=== PATIENT | female | born 1995 | race Two or more races ===

== ENCOUNTER 2019-06-05 10:00 | Inpatient (IN) | payer OTHER ==
[~2019-06-05] VITALS: Ht 152.4 cm; Wt 68.0 kg
[2019-06-14] MEDS ORDERED: ACETAMINOPHEN325 M1 PO (10:15)
[2019-06-14] MEDS ORDERED: Dermoplast SPRAY TOP (10:15)
[2019-06-14] MEDS ORDERED: HYDROCORTISO453.6 G1 RECTAL (10:15)
== END 2019-06-14 11:21 | disposition home or self-care (01) | DRG 807 ==
LOC: OB/GYN 06-12 09:37 → LDR 06-12 09:37 → OB/GYN 06-12 14:29
PROVIDERS: ADMIT Specialist
PROC: 10E0XZZ Delivery of Products of Conception, External Approach (ICD-10-PCS; principal; 2019-06-12)
PROC: 0UQGXZZ Repair Vagina, External Approach (ICD-10-PCS; 2019-06-12)
PROC: 3E033VJ Introduction of Other Hormone into Peripheral Vein, Percutaneous Approach (ICD-10-PCS; 2019-06-12)
PROC: 10907ZC Drainage of Amniotic Fluid, Therapeutic from Products of Conception, Via Natural or Artificial Opening (ICD-10-PCS; 2019-06-12)
PROC: 4A1HXCZ Monitoring of Products of Conception, Cardiac Rate, External Approach (ICD-10-PCS; 2019-06-12)
DX: O71.4 Obstetric high vaginal laceration alone (principal); Z37.0 Single live birth; Z3A.37 37 weeks gestation of pregnancy